=== PATIENT | female | born 1985 | race Caucasian/White ===

== ENCOUNTER 2016-06-11 00:11 | Emergency (ER) | payer OTHER ==
[~2016-06-11] VITALS: Ht 162.6 cm; Wt 97.2 kg
[~2016-06-11 00:11] MED LIST: BACTRIM,SEPT1 TABLET PO; DOCUSATE SODIU100 MG PO; EVZIO0.4 MG/0.4 IM; IBUPROFEN800 MG PO; KEFLEX500 MG PO; LEVETIRACETAM500 MG PO; LOPRESSOR25 MG PO; MOTRIN800 MG PO; TUMS500 MG PO; ULTRAM50 MG PO; WELLBUTRIN SR150 MG PO; ZYVOX600 MG PO
[2016-06-11 00:54] LABS: HEMATOCRIT 38.3 % (36.0-46.0); MCH 30.1 PG (29.0-34.0); MCHC 34.2 G/DL (30.0-36.0); MEAN PLAT.VOLUME 9.3 uM^3 (9.5-12.4); PLATELET COUNT 287 K/uL (156-360); RBC DIS.WIDTH-CV 13.8 % (11.8-14.6); RBC DIS.WIDTH-SD 43.8 % (39-53); RED BLOOD COUNT 4.35 M/uL (3.80-5.20); WHITE BLOOD COUNT 16.9 K/uL (4.1-10.2)
[2016-06-11 01:00] LABS: CHLORIDE 107 mEq/L (99-109); POTASSIUM 3.2 mEq/L (3.7-5.4); SODIUM 141 mEq/L (136-147)
[2016-06-11 01:02] LABS: GLUCOSE 133 mg/dL (70-99)
[2016-06-11 01:04] LABS: ANION GAP 12 MEQ/L (2-14)
[2016-06-11 01:05] LABS: SERUM ETHYL ALCOHOL < 10 mg/dL
[2016-06-11 01:06] LABS: GFR ESTIMATE (CALCULATED) > 59 mL/min/
[2016-06-11 01:08] LABS: UREA NITROGEN (BUN) 14 mg/dL (9-23)
[2016-06-11 01:09] LABS: SALICYLATE < 5.0 MG/DL (15-30)
[2016-06-11 06:06] VITALS: BP 97/55
== END 2016-06-11 06:28 | disposition home or self-care (01) ==
LOC: EME → EDBD 00:11 → EME 06:28
PROVIDERS: Emergency Medicine
DX: T42.4X2A Poisoning by benzodiazepines, intentional self-harm, initial encounter (principal); F33.1 Major depressive disorder, recurrent, moderate; E87.6 Hypokalemia; F41.1 Generalized anxiety disorder; F11.90 Opioid use, unspecified, uncomplicated; R00.0 Tachycardia, unspecified; F17.200 Nicotine dependence, unspecified, uncomplicated
CPT/HCPCS: 80048; 85027; 90837; 93005; 99281; 99285; G0480; J7030

== ENCOUNTER 2016-06-17 08:04 | Emergency (ER) | payer OTHER ==
[~2016-06-17] VITALS: Ht 162.6 cm; Wt 66.8 kg
[2016-06-17] MEDS ORDERED: SERTRALINE HCL50 MG PO (08:47)
[2016-06-17] MEDS ORDERED: VYVANSE50 MG PO (08:47)
[2016-06-17 08:50] LABS: HEMATOCRIT 43.7 % (36.0-46.0); MCHC 32.5 G/DL (30.0-36.0); MEAN PLAT.VOLUME 9.4 uM^3 (9.5-12.4); PLATELET COUNT 314 K/uL (156-360); RBC DIS.WIDTH-CV 13.9 % (11.8-14.6); RBC DIS.WIDTH-SD 47.5 % (39-53); RED BLOOD COUNT 4.73 M/uL (3.80-5.20)
[2016-06-17 09:00] LABS: CHLORIDE 107 mEq/L (99-109); SODIUM 138 mEq/L (136-147)
[2016-06-17 09:03] LABS: GLUCOSE 84 mg/dL (70-99)
[2016-06-17 09:04] LABS: ANION GAP 10 MEQ/L (2-14)
[2016-06-17 09:05] LABS: TOTAL BILIRUBIN 0.8 mg/dL (0.0-1.0)
[2016-06-17 09:06] LABS: ALKALINE PHOSPHATASE 54 IU/L (3-129); GFR ESTIMATE (CALCULATED) > 59 mL/min/
[2016-06-17 09:07] LABS: UREA NITROGEN (BUN) 16 mg/dL (9-23)
[2016-06-17 09:11] LABS: MCV 92.4 FL (83-99); WHITE BLOOD COUNT 10.1 K/uL (4.1-10.2)
[2016-06-17 09:15] LABS: QUANTITATIVE HCG < 4.0 MIU/ML
[2016-06-17 09:22] LABS: POTASSIUM 4.1 mEq/L (3.7-5.4)
[2016-06-17 09:31] LABS: ADD MIUA? YES; BILIRUBIN NEGATIVE; BLOOD NEGATIVE; COLOR YELLOW ((YELLOW)); GLUCOSE (STRIP) NEGATIVE; KETONES NEGATIVE; LEUKOCYTES NEGATIVE; NITRITE NEGATIVE; PROTEIN (STRIP) NEGATIVE; SPECIFIC GRAVITY 1.016 (1.000-1.030); UROBILINOGEN 0.2 MG/DL (0.2-1.0)
[2016-06-17 10:14] LABS: EPITHELIAL CELLS 2+ /HPF; RED BLOOD CELLS NONE SEEN /HPF (0-5); WHITE BLOOD CELLS 0-5 /HPF (0-5)
[2016-06-17 10:15] LABS: BACTERIA 1+ /HPF; CASTS NONE SEEN /LPF; CRYSTALS NONE SEEN; MUCUS NONE SEEN /LPF; UCUL ADDED? NO
[2016-06-17] MEDS ORDERED: IMODIUM A-D2 M2 PO (11:24)
[2016-06-17 11:50] VITALS: BP 135/86
== END 2016-06-17 11:51 | disposition home or self-care (01) ==
LOC: EME 08:04
PROVIDERS: Nurse Practitioner Family
DX: K52.9 Noninfective gastroenteritis and colitis, unspecified (principal); K64.8 Other hemorrhoids; F17.200 Nicotine dependence, unspecified, uncomplicated
CPT/HCPCS: 74176; 80053; 81003; 84702; 85027; 99281; 99285

== ENCOUNTER 2016-10-31 08:05 | Emergency (ER) | payer OTHER ==
[~2016-10-31] VITALS: Ht 162.6 cm; Wt 68.0 kg
[~2016-10-31 08:05] MED LIST changes: +IMODIUM A-D2 M2 PO; +SERTRALINE HCL50 MG PO; +VYVANSE50 MG PO
[2016-10-31 09:13] LABS: ADD MIUA? YES; BILIRUBIN NEGATIVE; BLOOD NEGATIVE; COLOR YELLOW ((YELLOW)); GLUCOSE (STRIP) NEGATIVE; KETONES 5; LEUKOCYTES NEGATIVE; NITRITE NEGATIVE; PROTEIN (STRIP) 100; SPECIFIC GRAVITY 1.021 (1.000-1.030); UROBILINOGEN 0.2 MG/DL (0.2-1.0)
[2016-10-31 09:24] LABS: AMPHETAMINE PRESUMPTIVE POSITIVE (500 ng/mL); BARBITURATES NEGATIVE (200 ng/mL); BENZODIAZEPINES NEGATIVE (150 ng/mL); COCAINE PRESUMPTIVE POSITIVE (150 ng/mL); INTERNAL CONTROLS VALID? YES; METHADONE PRESUMPTIVE POSITIVE (200 ng/mL); METHAMPHETAMINE NEGATIVE (500 ng/mL); OPIATES (MORPHINE) NEGATIVE (100 ng/mL); OXYCODONE NEGATIVE (100 ng/mL); PHENCYCLIDINE NEGATIVE (25 ng/mL); PROPOXYPHENE NEGATIVE (300 ng/mL); THC CANNABINOIDS PRESUMPTIVE POSITIVE (50 ng/mL); TRICYCLIC ANTIDEPRESSANTS NEGATIVE (300 ng/mL)
[2016-10-31 09:25] LABS: ADD MEDTOX COMMENT Y
[2016-10-31 09:48] LABS: EOSINOPHIL (%) 1.3 % (0-5); EOSINOPHIL COUNT 0.1 K/uL (0-0.3); HEMATOCRIT 38.2 % (36.0-46.0); IMMATURE GRANULOCYTE (%) 0.5 % (0.0-0.7); INSTRUMENT ABS NEUTROPHIL CT 3.9 K/uL; MCH 29.7 PG (29.0-34.0); MCHC 34.6 G/DL (30.0-36.0); MEAN PLAT.VOLUME 9.6 uM^3 (9.5-12.4); MONOCYTE (%) 5.1 % (3-12); MONOCYTE COUNT 0.3 K/uL (0-0.8); NEUTROPHIL (%) 61.3 % (45-76); NEUTROPHIL COUNT 3.9 K/uL (1.8-6.4); PLATELET COUNT 193 K/uL (156-360); RBC DIS.WIDTH-CV 12.6 % (11.8-14.6); RBC DIS.WIDTH-SD 39.7 % (39-53); RED BLOOD COUNT 4.44 M/uL (3.80-5.20); WHITE BLOOD COUNT 6.3 K/uL (4.1-10.2)
[2016-10-31 09:55] LABS: CHLORIDE 105 mEq/L (99-109); POTASSIUM 4.1 mEq/L (3.7-5.4); SODIUM 136 mEq/L (136-147)
[2016-10-31 09:57] LABS: GLUCOSE 97 mg/dL (70-99)
[2016-10-31 09:58] LABS: ANION GAP 11 MEQ/L (2-14)
[2016-10-31 09:59] LABS: TOTAL BILIRUBIN 0.5 mg/dL (0.0-1.0)
[2016-10-31 10:00] LABS: SERUM ETHYL ALCOHOL < 10 mg/dL
[2016-10-31 10:01] LABS: ALKALINE PHOSPHATASE 49 IU/L (3-129); GFR ESTIMATE (CALCULATED) > 59 mL/min/
[2016-10-31 10:02] LABS: UREA NITROGEN (BUN) 13 mg/dL (9-23)
[2016-10-31 10:03] LABS: DIRECT BILIRUBIN 0.2 mg/dL (0.0-0.3)
[2016-10-31 10:10] LABS: QUANTITATIVE HCG < 4.0 MIU/ML
[2016-10-31 10:15] LABS: BACTERIA NONE SEEN /HPF; EPITHELIAL CELLS RARE /HPF; HYALINE CASTS 0-5 /LPF; MUCUS TRACE /LPF; RED BLOOD CELLS 0-5 /HPF (0-5); WHITE BLOOD CELLS 0-5 /HPF (0-5)
[2016-10-31 14:27] VITALS: BP 118/78
== END 2016-10-31 14:30 | disposition home or self-care (01) ==
LOC: EME 08:05
PROVIDERS: Emergency Medicine
DX: G40.909 Epilepsy, unspecified, not intractable, without status epilepticus (principal); Z91.14 Patient's other noncompliance with medication regimen; F14.10 Cocaine abuse, uncomplicated; Z86.73 Personal history of transient ischemic attack (TIA), and cerebral infarction without residual deficits; F17.200 Nicotine dependence, unspecified, uncomplicated
CPT/HCPCS: 70450; 80048; 80076; 81003; 84702; 84999; 85025; 99281; 99285; G0480; J1630; J2060